=== PATIENT | female | born 1995 | race Two or more races ===

== ENCOUNTER 2018-03-27 17:47 | Emergency (ER) | payer SELFPAY ==
[2018-03-27] MEDS ORDERED: MAG HYDROX/AL HYDROX/SIMETH SUSP 30 ML UDCUP PO ONE (19:52)
[2018-03-27] MEDS ORDERED: METOCLOPRAMIDE HCL ORAL SOLN 10 MG/10 ML UDCUP PO ONE (19:52)
[2018-03-27] MEDS ORDERED: LIDOCAINE 2% VISCOUS SOLN 20 ML UDCUP PO ONE (19:52)
--- NOTE | 2018-03-27 19:54 | ER Document Report ---
ED Medical Screen (RME) - General Chief Complaint: Chest Pain Stated Complaint: CHEST PAIN Time Seen by Provider: 03/27/18 19:52 Mode of Arrival: Ambulatory Information source: Patient Notes: Patient is a 22-year-old female who presents with chief complaint of chest pain and epigastric pain. Patient reports she has been having intermittent burning in the center of her chest with radiation to left arm for the last 3 days. Patient also reports a burning and stabbing pain in her upper abdomen, she states this is worse with any oral intake. Patient reports nausea but denies any vomiting or diarrhea or fever. Exam: Abdomen soft, nontender. Chest wall nontender to palpation. I have greeted and performed a rapid initial assessment of this patient. A comprehensive ED assessment and evaluation of the patient, analysis of test results and completion of the medical decision making process will be conducted by additional ED providers. Dictation of this chart was performed using voice recognition software; therefore, there may be some unintended grammatical errors. TRAVEL OUTSIDE OF THE [place] IN LAST 30 DAYS: No - Related Data Allergies/Adverse Reactions: ibuprofen Allergy (Verified 03/27/18 17:49) Past Medical History - Social History Frequency of alcohol use: Rare Renal/ Medical History: Denies: Hx Peritoneal Dialysis Physical Exam - Vital signs Vitals: Temp Pulse Resp BP Pulse Ox 98.8 F 93 16 127/76 H 97 03/27/18 18:10 03/27/18 18:10 03/27/18 18:10 03/27/18 18:10 03/27/18 18:10 Course - Vital Signs Vital signs: Temp Pulse Resp BP Pulse Ox 98.8 F 93 16 127/76 H 97 03/27/18 18:10 03/27/18 18:10 03/27/18 18:10 03/27/18 18:10 03/27/18 18:10
--- NOTE | 2018-03-27 20:04 | EKG REPORT ---
SEVERITY:- NORMAL ECG - SINUS RHYTHM : Confirmed by: Madiha Arreaga MD 27-Mar-2018 20:03:58
[2018-03-27 20:22] LABS: ABSOLUTE BASOPHILS # (AUTO) 0.1 10^3/uL (0.0-0.2); ABSOLUTE EOSINOPHILS # (AUTO) 0.1 10^3/uL (0.0-0.6); ABSOLUTE LYMPHOCYTES (AUTO) 2.5 10^3/uL (0.5-4.7); ABSOLUTE MONOCYTES (AUTO) 0.6 10^3/uL (0.1-1.4); ABSOLUTE NEUT (AUTO) 9.3 10^3/uL (1.7-8.2); BASOPHILS % (AUTO) 0.5 % (0-2); EOSINOPHILS % (AUTO) 0.8 % (0-6); HEMATOCRIT 36.9 % (36.0-47.0); HEMOGLOBIN 12.9 g/dL (12.0-15.5); LYMPHOCYTES % (AUTO) 19.8 % (13-45); MEAN CORPUSCULAR HEMOGLOBIN 30.4 pg (27.0-33.4); MEAN CORPUSCULAR HGB CONC 34.9 g/dL (32.0-36.0); MEAN CORPUSCULAR VOLUME 87 fl (80-97); MONOCYTES % (AUTO) 4.7 % (3-13); PLATELET COUNT 679 10^3/uL (150-450); RED BLOOD COUNT 4.24 10^6/uL (3.72-5.28); RED CELL DISTRIBUTION WIDTH 12.7 % (11.5-14.0); SEGMENTED NEUTROPHILS % (AUTO) 74.2 % (42-78); TOTAL CELLS COUNTED % (AUTO) 100 %; WHITE BLOOD COUNT 12.6 10^3/uL (4.0-10.5)
[2018-03-27 20:32] LABS: APPEARANCE,URINE SLIGHTLY-CLOUDY; BILIRUBIN,URINE NEGATIVE (NEGATIVE); COLOR,URINE YELLOW; GLUCOSE, URINE NEGATIVE (NEGATIVE); KETONES,URINE NEGATIVE (NEGATIVE); LEUKOCYTE ESTERASE,URINE NEGATIVE (NEGATIVE); NITRITE,URINE NEGATIVE (NEGATIVE); PROTEIN,URINE NEGATIVE (NEGATIVE); URINE SPECIFIC GRAVITY 1.031
[2018-03-27 20:50] LABS: ALANINE AMINOTRANSFERASE 17 U/L (9-52); ALKALINE PHOSPHATASE 97 U/L (38-126); ANION GAP 11 (5-19); ASPARTATE AMINO TRANSFERASE 19 U/L (14-36); BILIRUBIN,DIRECT 0.3 mg/dL (0.0-0.4); BILIRUBIN,TOTAL 0.3 mg/dL (0.2-1.3); BLOOD UREA NITROGEN 8 mg/dL (7-20); CALCIUM 9.8 mg/dL (8.4-10.2); CARBON DIOXIDE 26 mmol/L (22-30); CHLORIDE 104 mmol/L (98-107); GLUCOSE 93 mg/dL (75-110); LIPASE 101.9 U/L (23-300); POTASSIUM 4.3 mmol/L (3.6-5.0); SODIUM 141.4 mmol/L (137-145)
[2018-03-27] MEDS ORDERED: MORPHINE SULFATE 10 MG/ML INJ IM ONE (22:27)
--- NOTE | 2018-03-27 22:33 | ER Document Report ---
ED General - General Chief Complaint: Chest Pain Stated Complaint: CHEST PAIN Time Seen by Provider: 03/27/18 19:52 Mode of Arrival: Ambulatory Information source: Patient, [facility] Records Notes: 21-year-old female with no reported past medical history presents with complaint of right upper quadrant, epigastric and left upper chest pain and left shoulder pain. Patient states that right upper quadrant pain started 2 weeks prior to arrival. She states over the last week it has become more intense and describes it as a severe tearing pain that radiates to her left shoulder. Patient states that symptoms are worse with food. She states that she can only have relief of pain when she curls up into a ball. Patient has had associated nausea but without vomiting. She denies any fever, chills, shortness of breath, lower abdominal pain, back pain. She denies any NSAID or alcohol use. She denies prior similar symptoms. She denies family history of early cardiac disease. TRAVEL OUTSIDE OF THE [place] IN LAST 30 DAYS: No - HPI Onset: Other Onset/Duration: Gradual, Persistent, Worse Quality of pain: Stabbing, Throbbing Severity: Moderate Pain Level: 2 Associated symptoms: Chest pain, Nausea. denies: Vomiting, Shortness of breath Exacerbated by: Food Relieved by: Denies Similar symptoms previously: No Recently seen / treated by doctor: No - Related Data Allergies/Adverse Reactions: ibuprofen Allergy (Verified 03/27/18 17:49) Past Medical History - General Information source: Patient - Social History Smoking Status: Never Smoker Frequency of alcohol use: Rare Drug Abuse: None Lives with: Family Family History: Reviewed & Not Pertinent Patient has suicidal ideation: No Patient has homicidal ideation: No - Medical History Medical History: Negative Renal/ Medical History: Denies: Hx Peritoneal Dialysis Review of Systems - Review of Systems Notes: REVIEW OF SYSTEMS: CONSTITUTIONAL : Denies fever, chills, or sweats. Denies recent illness. Denies weight loss, recent hospitalizations. EENT: Denies visual changes, eye pain. Denies sore throat, oral lesions, difficulty swallowing. CARDIOVASCULAR: Denies palpitations. Denies lower extremity edema. RESPIRATORY: Denies cough. Denies shortness of breath, wheezing. GASTROINTESTINAL: Denies abdominal distention. Denies vomiting, or diarrhea. Denies blood in vomitus, stools, or per rectum. Denies black, tarry stools. Denies constipation. GENITOURINARY: Denies difficulty urinating, painful urination, frequency, blood in urine, or vaginal discharge. MUSCULOSKELETAL: Denies back or neck pain or stiffness. Denies joint swelling. SKIN: Denies rash, lesions or sores. HEMATOLOGIC : Denies easy bruising or bleeding. LYMPHATIC: Denies swollen glands. NEUROLOGICAL: Denies confusion or altered mental status. Denies loss of consciousness. Denies dizziness or lightheadedness. Denies headache. Denies weakness or paralysis. Denies problems difficulty with ambulation, slurred speech. Denies sensory loss, numbness, or tingling. Denies seizures. PSYCHIATRIC: Denies anxiety or stress. Denies depression, suicidal ideation, or homicidal ideation. Denies visual or auditory hallucinations. Physical Exam - Vital signs Vitals: Temp Pulse Resp BP Pulse Ox 98.8 F 93 16 127/76 H 97 03/27/18 18:10 03/27/18 18:10 03/27/18 18:10 03/27/18 18:10 03/27/18 18:10 - Notes Notes: PHYSICAL EXAMINATION: GENERAL: Well-appearing, well-nourished and in no acute distress. HEAD: Atraumatic, normocephalic. EYES: Pupils equal round and reactive to light, extraocular movements intact, conjunctiva are normal. ENT: Nares patent, oropharynx clear without exudates. Moist mucous membranes. NECK: Normal range of motion, supple without lymphadenopathy LUNGS: Breath sounds clear to auscultation bilaterally and equal. No wheezes rales or rhonchi. HEART: Regular rate and rhythm without murmurs ABDOMEN: Tenderness with palpation to the right upper quadrant and epigastric region.. No guarding, no rebound. No masses appreciated. Female : deferred Musculoskeletal: Normal range of motion, no pitting or edema. No cyanosis. NEUROLOGICAL: Cranial nerves grossly intact. Normal speech, normal gait. Normal sensory, motor exams PSYCH: Normal mood, normal affect. SKIN: Warm, Dry, normal turgor, no rashes or lesions noted. Course - Re-evaluation Re-evalutation: Laboratory 03/27/18 03/27/18 03/27/18 20:01 20:01 20:01 WBC 12.6 H RBC 4.24 Hgb 12.9 Hct 36.9 MCV 87 MCH 30.4 MCHC 34.9 RDW 12.7 Plt Count 679 H Seg Neutrophils % 74.2 Lymphocytes % 19.8 Monocytes % 4.7 Eosinophils % 0.8 Basophils % 0.5 Absolute Neutrophils 9.3 H Absolute Lymphocytes 2.5 Absolute Monocytes 0.6 Absolute Eosinophils 0.1 Absolute Basophils 0.1 Sodium 141.4 Potassium 4.3 Chloride 104 Carbon Dioxide 26 Anion Gap 11 BUN 8 Creatinine 0.67 Est GFR ( Amer) > 60 Est GFR (Non-Af Amer) > 60 Glucose 93 Calcium 9.8 Total Bilirubin 0.3 Direct Bilirubin 0.3 Neonat Total Bilirubin Not Reportable Neonat Direct Bilirubin Not Reportable Neonat Indirect Bili Not Reportable AST 19 ALT 17 Alkaline Phosphatase 97 Troponin I Total Protein 9.0 H Albumin 4.0 Lipase 101.9 Urine Color YELLOW Urine Appearance SLIGHTLY-CLOUDY Urine pH 5.0 Ur Specific [place] 1.031 Urine Protein NEGATIVE Urine Glucose (UA) NEGATIVE Urine Ketones NEGATIVE Urine Blood SMALL H Urine Nitrite NEGATIVE Urine Bilirubin NEGATIVE Urine Urobilinogen 2.0 H Ur Leukocyte Esterase NEGATIVE Urine WBC (Auto) 3 Urine RBC (Auto) 3 Urine Bacteria (Auto) TRACE Squamous Epi Cells Auto 4 Urine Mucus (Auto) MANY Urine Ascorbic Acid NEGATIVE Urine HCG, Qual 03/27/18 03/27/18 20:01 20:01 WBC RBC Hgb Hct MCV MCH MCHC RDW Plt Count Seg Neutrophils % Lymphocytes % Monocytes % Eosinophils % Basophils % Absolute Neutrophils Absolute Lymphocytes Absolute Monocytes Absolute Eosinophils Absolute Basophils Sodium Potassium Chloride Carbon Dioxide Anion Gap BUN Creatinine Est GFR ( Amer) Est GFR (Non-Af Amer) Glucose Calcium Total Bilirubin Direct Bilirubin Neonat Total Bilirubin Neonat Direct Bilirubin Neonat Indirect Bili AST ALT Alkaline Phosphatase Troponin I < 0.012 Total Protein Albumin Lipase Urine Color Urine Appearance Urine pH Ur Specific [place] Urine Protein Urine Glucose (UA) Urine Ketones Urine Blood Urine Nitrite Urine Bilirubin Urine Urobilinogen Ur Leukocyte Esterase Urine WBC (Auto) Urine RBC (Auto) Urine Bacteria (Auto) Squamous Epi Cells Auto Urine Mucus (Auto) Urine Ascorbic Acid Urine HCG, Qual NEGATIVE Abdomen Ultrasound 03/27/18 22:26 IMPRESSION: 1. No sonographic abnormality identified in the right upper abdomen. No gallstones. 03/27/18 22:33 22-year-old female presents with complaint of right upper quadrant, epigastric and left upper chest pain that has been ongoing for 2 weeks with worsening of pain over the last week. She states that pain is worse with food. She has associated nausea without vomiting. Vital signs were reviewed. Patient is afebrile, normotensive and not hypoxic. Patient does not appear toxic or dehydrated. Patient does appear to be in significant pain. Previous medical records and nursing notes reviewed. Patient received a GI cocktail prior to my exam and states that it initially helped but the pain has returned. Exam is significant for right upper quadrant tenderness and epigastric tenderness. Ultrasound of the gallbladder shows no evidence of cholecystitis, cholelithiasis. Patient received IM morphine and on second reevaluation she reports improvement of pain. Exam is consistent with gastritis.Patient presents with epigastric abdominal pain with associated reflux symptoms most consistent with likely gastritis. Right upper quadrant ultrasound does not demonstrate any evidence of acute cholecystitis or cholelithiasis. Lipase is normal. No LFT changes. Based on history and exam, I do not suspect ACS, pulmonary embolus, SBO, mesenteric ischemia, acute pancreatitis, biliary pathology, or an abdominal aortic dissection. Patient has had improvement of symptoms here with a GI cocktail. At this time will discharge with return precautions and follow-up recommendations. Verbal discharge instructions given a the bedside and opportunity for questions given. Medication warnings reviewed. Patient is in agreement with this plan and has verbalized understanding of return precautions and the need for primary care follow-up in the next 24-72 hours. Patient provided the opportunity to ask questions, and express concerns. Discharge instructions discussed. Patient is agreeable with discharge home. Return indications explained and discussed with the patient who displays understanding. Patient encouraged to return to the emergency department immediately with any concerns. Results were discussed with the patient at this point, after careful consideration I feel that that patient can be discharged from the emergency department, the patient was educated treatments and reasons to return to the emergency department based on their presumed diagnosis as noted above, they were advised to followup with a primary care physician in 2-3 days. Patient was agreeable to plan of care. Dictation on this chart was performed using voice recognition software and may result in unintended grammatical, spelling, syntax or errors. 03/27/18 22:34 03/28/18 00:25 - Vital Signs Vital signs: Temp Pulse Resp BP Pulse Ox 98.8 F 93 16 127/76 H 97 03/27/18 18:10 03/27/18 18:10 03/27/18 18:10 03/27/18 18:10 03/27/18 18:10 - Laboratory Result Diagrams: 03/27/18 20:01 03/27/18 20:01 Laboratory results interpreted by me: 03/27/18 03/27/18 03/27/18 20:01 20:01 20:01 WBC 12.6 H Plt Count 679 H Absolute Neutrophils 9.3 H Total Protein 9.0 H Urine Blood SMALL H Urine Urobilinogen 2.0 H - Diagnostic Test Radiology reviewed: Image reviewed, Reports reviewed - EKG Interpretation by Me EKG shows normal: Sinus rhythm Rate: Normal Rhythm: NSR When compared to previous EKG there are: Previous EKG unavailable Discharge - Discharge Clinical Impression: Nausea, Epigastric abdominal pain, Right upper quadrant abdominal pain Gastritis Qualifiers: Gastritis type: unspecified gastritis Chronicity: acute Gastritis bleeding: without bleeding Qualified Code(s): K29.00 - Acute gastritis without bleeding Condition: Good Disposition: HOME, SELF-CARE Instructions: Abdominal Pain ([facility]), Evaluation of Upper Abdominal Pain ([facility]), Gastritis ([facility]) Additional Instructions: Your labs and imaging today do not show any evidence of pancreatitis, cholecystitis or gallstones. Your symptoms appear to be most consistent with stomach or upper intestinal irritation. Please begin taking famotidine 40 mg in the morning and 40 mg at night. This medicine can be purchased directly [id number]. You may also take medicine such as Pepto-Bismol or Tums to assist with your pain. Please return to emergency department immediately if you have worsening of your pain, shortness of breath, vomiting, become unable to exert yourself due to pain or difficulty breathing, you pass out, or have any pain that radiates into your arms, jaw, or back. Please also return if you have any additional symptoms that are concerning to you. As we have discussed, the most important thing is lifestyle changes. You need to avoid smoking, sodas, tea, coffee, alcohol, spicy foods, and acidic foods such as citrus fruits, tomato based products, berries, and most fruit juices. Prescriptions: Omeprazole Magnesium [Prilosec] 20 mg PO QHS #30 [email or web address] Famotidine 20 mg PO BID #60 tablet Sucralfate [Carafate 1 gm Tablet] 1 gm PO ACHS #120 tablet
--- NOTE | 2018-03-27 23:49 | RADIOLOGY REPORT (SQ) ---
EXAM DESCRIPTION: US ABDOMEN LIMITED COMPLETED DATE/TME: 03/27/2018 22:26 CLINICAL HISTORY: Right upper quadrant abdominal pain COMPARISON: None. TECHNIQUE: Real-time sonographic images of the right upper abdomen were obtained using a curved multihertz transducer. FINDINGS: Pancreas: The visualized portions of the pancreas are unremarkable. Vascular: The visualized portions of the aorta and IVC are unremarkable. Liver: The liver has normal contour and echogenicity. Hepatopedal flow in the portal vein. Findings confirmed with color and spectral Doppler imaging. The common bile duct measures 0.4 cm. Gallbladder: The gallbladder has a normal appearance. No gallstones identified. No wall thickening or pericholecystic fluid. Negative reported sonographic Portillo sign. Right Kidney: The right kidney measures 10.8 cm in length. No hydronephrosis, solid renal mass, or shadowing calculi. IMPRESSION: 1. No sonographic abnormality identified in the right upper abdomen. No gallstones.
[2018-03-28] MEDS ORDERED: SUCRALFATE SUSP 1 GM/10 ML UDCUP PO ONE (00:09)
[2018-03-28 00:46] VITALS: BP 116/75
== END 2018-03-28 00:45 | disposition home or self-care (01) ==
LOC: ER 17:47
DX: K29.00 Acute gastritis without bleeding (principal); R07.9 Chest pain, unspecified; R10.11 Right upper quadrant pain; R10.13 Epigastric pain; M25.512 Pain in left shoulder; R11.0 Nausea; Z88.6 Allergy status to analgesic agent
CPT/HCPCS: 93005; 99285; 96372; 36415; 83690; 85025; 81025; 80053; 81001; 84484; 76705; 93010; J3490; J2270

== ENCOUNTER 2019-08-01 16:36 | Emergency (ER) | payer SELFPAY ==
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
[2019-08-01 18:11] LABS: ABSOLUTE EOSINOPHILS # (AUTO) 0.1 10^3/uL (0.0-0.6); ABSOLUTE LYMPHOCYTES (AUTO) 2.9 10^3/uL (0.5-4.7); ABSOLUTE MONOCYTES (AUTO) 0.5 10^3/uL (0.1-1.4); ABSOLUTE NEUT (AUTO) 3.7 10^3/uL (1.7-8.2); BASOPHILS % (AUTO) 0.5 % (0-2); HEMATOCRIT 38.1 % (36.0-47.0); HEMOGLOBIN 13.3 g/dL (12.0-15.5); MEAN CORPUSCULAR HEMOGLOBIN 31.5 pg (27.0-33.4); MEAN CORPUSCULAR HGB CONC 34.8 g/dL (32.0-36.0); MEAN CORPUSCULAR VOLUME 91 fl (80-97); MONOCYTES % (AUTO) 6.8 % (3-13); PLATELET COUNT 351 10^3/uL (150-450); RED BLOOD COUNT 4.21 10^6/uL (3.72-5.28); RED CELL DISTRIBUTION WIDTH 13.5 % (11.5-14.0); SEGMENTED NEUTROPHILS % (AUTO) 50.7 % (42-78); TOTAL CELLS COUNTED % (AUTO) 100 %; WHITE BLOOD COUNT 7.3 10^3/uL (4.0-10.5)
[2019-08-01 18:34] LABS: ALBUMIN 4.5 g/dL (3.5-5.0); ALKALINE PHOSPHATASE 92 U/L (38-126); ANION GAP 7 (5-19); ASPARTATE AMINO TRANSFERASE 21 U/L (14-36); BILIRUBIN,TOTAL 0.2 mg/dL (0.2-1.3); BLOOD UREA NITROGEN 12 mg/dL (7-20); CALCIUM 9.9 mg/dL (8.4-10.2); CARBON DIOXIDE 28 mmol/L (22-30); CHLORIDE 103 mmol/L (98-107); GLUCOSE 82 mg/dL (75-110); POTASSIUM 4.2 mmol/L (3.6-5.0); TOTAL PROTEIN 7.5 g/dL (6.3-8.2)
[2019-08-01 18:40] LABS: ACETAMINOPHEN < 10 ug/mL (10-30); ALCOHOL < 10 mg/dL (NONE DETECTED); SALICYLATE < 1.0 mg/dL (2.0-20.0)
--- NOTE | 2019-08-01 19:08 | ER Document Report ---
ED Psych Disorder / Suicide - General TRAVEL OUTSIDE OF THE [place] IN LAST 30 DAYS: No <ELVER SHEFFIELD - Last Filed: 08/02/19 10:24> <AMBER DAVID - Last Filed: 08/02/19 14:17> - General Chief Complaint: Suicidal Ideation Stated Complaint: SUICIDAL IDEATION WITH PLAN Time Seen by Provider: 08/01/19 17:32 Notes: See prior note for history and physical exam. Patient's lab work has resulted, awaiting drug screen. Patient is otherwise stable at this point and is medically cleared for psychiatric evaluation (ELVER SHEFFIELD) - Related Data Allergies/Adverse Reactions: ibuprofen Allergy (Verified 08/01/19 17:37) Past Medical History - Social History Smoking Status: Never Smoker Chew tobacco use (# tins/day): No Frequency of alcohol use: None Drug Abuse: None Family History: Reviewed & Not Pertinent Patient has suicidal ideation: No Patient has homicidal ideation: No Renal/ Medical History: Denies: Hx Peritoneal Dialysis <ELVER SHEFFIELD - Last Filed: 08/02/19 10:24> Physical Exam - Vital signs Vitals: Temp Pulse Resp BP Pulse Ox 98.2 F 78 16 124/69 100 08/01/19 16:41 08/01/19 16:41 08/01/19 16:41 08/01/19 16:41 08/01/19 16:41 Course - Laboratory Result Diagrams: 08/01/19 17:54 08/01/19 17:54 <ELVER SHEFFIELD - Last Filed: 08/02/19 10:24> - Laboratory Result Diagrams: 08/01/19 17:54 08/01/19 17:54 <AMBER DAVID - Last Filed: 08/02/19 14:17> - Re-evaluation Re-evalutation: 08/02/19 10:24 Patient in no distress at this time, awaiting evaluation by the psychiatric team. Patient has no complaints at this time. Regular rate and rhythm, lung sounds are clear to auscultation. Alert and oriented x3 (ELVER SHEFFIELD) - Vital Signs Vital signs: Temp Pulse Resp BP Pulse Ox 97.8 F 91 16 120/68 98 08/02/19 11:00 08/02/19 11:00 08/02/19 11:00 08/02/19 11:00 08/02/19 05:17 - Laboratory Laboratory results interpreted by me: 08/01/19 08/01/19 17:54 19:30 Urine Blood SMALL H Salicylates < 1.0 L Acetaminophen < 10 L Discharge <ELVER SHEFFIELD - Last Filed: 08/02/19 10:24> <AMBER DAVID - Last Filed: 08/02/19 14:17> - Discharge Clinical Impression: Suicidal ideation Condition: Stable Disposition: HOME, SELF-CARE Additional Instructions: You have been evaluated by both medical and behavioral health teams for suicidal ideation and have been deemed appropriate for discharge. While you were in the Emergency Department you received the following services: medical, psychiatric/psychological, pharmaceutical, dietary, nursing, safety manager and security, environmental in addition to psychoeducation and resources/referrals. You were started and provided prescriptions for Celexa 20mg daily and Buspar 5mg twice daily; please take as directed. You are recommend for both medication management and therapeutic services. You are recommended to follow up with [facility] or [facility] as a walk in to establish services. You have been provided a local resources list of area provider including mobile crisis contact information. DEPRESSION: Your evaluation reveals that you have mental depression. While symptoms may be vague, they often include disturbance of sleep, fatigue, loss of appetite, and general loss of interest in life. While depression may be a side effect of drugs, or a reaction to a major change in your life, many cases have no known cause. If depression is acute, and related to a major loss in your life, you can expect it to clear completely with time. If you have been depressed a long time, are prone to repeated bouts of depression or low mood, or have been thinking of suicide, get help. Depression can be treated with anti-depressant medication and counselling. Long-term depression will often take a few weeks to clear, even with appropriate medication. Follow-up care is important. SUICIDAL IDEATION: Suicidal ideation is a common medical term for thoughts about suicide, which may be as detailed as a formulated plan, without the suicidal act itself. Although most people who undergo suicidal ideation do not commit suicide, some go on to make suicide attempts. The range of suicidal ideation varies greatly from fleeting to detailed planning, role playing, and unsuccessful attempts. While thoughts about suicide are common, most people do not carry out serious actions to commit suicide. Based upon your evaluation and discussion with you, we do not believe you are currently at risk to act upon your thoughts of suicide. You have agreed to return to the Emergency Department, at any time, if you feel inclined to act upon your suicidal thoughts. FOLLOW-UP CARE: If you have been referred to a physician for follow-up care, call the physicians office for an appointment as you were instructed or within the next two days. If you experience worsening or a significant change in your symptoms, notify the physician immediately or return to the Emergency Department at any time for re-evaluation. Referrals: [facility] [Outside] - Follow up as needed [facility] [Outside] - Follow up as needed [facility] [Outside] - Follow up as needed
[2019-08-01 19:45] LABS: APPEARANCE,URINE CLEAR; BILIRUBIN,URINE NEGATIVE (NEGATIVE); COLOR,URINE STRAW; GLUCOSE, URINE NEGATIVE (NEGATIVE); KETONES,URINE NEGATIVE (NEGATIVE); LEUKOCYTE ESTERASE,URINE NEGATIVE (NEGATIVE); NITRITE,URINE NEGATIVE (NEGATIVE); PROTEIN,URINE NEGATIVE (NEGATIVE); UROBILINOGEN,URINE NEGATIVE mg/dL (<2.0)
[2019-08-01 19:55] LABS: URINE AMPHETAMINES SCREEN NEGATIVE; URINE BARBITURATES SCREEN NEGATIVE; URINE BENZODIAZEPINES SCREEN NEGATIVE; URINE COCAINE SCREEN NEGATIVE; URINE MARIJUANA (THC) SCREEN NEGATIVE; URINE METHADONE SCREEN NEGATIVE; URINE PHENCYCLIDINE SCREEN NEGATIVE
--- NOTE | 2019-08-01 20:41 | EKG REPORT ---
SEVERITY:- NORMAL ECG - SINUS RHYTHM : Confirmed by: Krystle Desir 01-Aug-2019 20:41:01
[2019-08-02] MEDS ORDERED: BUSPIRONE HCL 10 MG TABLET PO SCH (12:15)
[2019-08-02] MEDS ORDERED: CITALOPRAM HYDROBROMIDE 20 MG TABLET PO SCH (13:00)
[2019-08-02 15:11] VITALS: BP 118/68
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
== END 2019-08-02 14:58 | disposition home or self-care (01) ==
LOC: ER 16:36
DX: R45.851 Suicidal ideations (principal); F32.9 Major depressive disorder, single episode, unspecified; Z88.6 Allergy status to analgesic agent
CPT/HCPCS: 36415; 80053; 80307; 81001; 84703; 85025; 93005; 93010; 99285

== ENCOUNTER 2019-11-29 19:39 | Emergency (ER) | payer OTHER ==
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
[2019-11-29] MEDS ORDERED: HYDROCODONE/ACETAMINOPHEN 5-325 MG (6 TAB/ER DISP) PO PRN (22:14)
[2019-11-29 22:52] VITALS: BP 116/60
== END 2019-11-29 22:38 | disposition home or self-care (01) ==
LOC: ER 19:39
DX: S63.501A Unspecified sprain of right wrist, initial encounter (principal); S43.401A Unspecified sprain of right shoulder joint, initial encounter; S46.811A Strain of other muscles, fascia and tendons at shoulder and upper arm level, right arm, initial encounter; S16.1XXA Strain of muscle, fascia and tendon at neck level, initial encounter; S73.101A Unspecified sprain of right hip, initial encounter; M54.6 Pain in thoracic spine; M54.2 Cervicalgia; M79.601 Pain in right arm; M25.551 Pain in right hip; V87.7XXA Person injured in collision between other specified motor vehicles (traffic), initial encounter; F17.200 Nicotine dependence, unspecified, uncomplicated; Z88.8 Allergy status to other drugs, medicaments and biological substances
CPT/HCPCS: 72050; 72070; 99283